=== PATIENT | male | born 1950 | race Caucasian/White ===

== ENCOUNTER 2017-01-09 18:07 | Emergency (ER) | payer OTHER ==
[2017-01-09] MEDS ORDERED: Oxymetazoline 0.05% Nasal Spray 15 ML Bottle NAS ONE (18:21)
[2017-01-09 18:41] VITALS: BP 134/77
[2017-01-09] MEDS ORDERED: Take Home: Acetaminophen/HYDROcodone 325-10 MG, 5 Tab Pack PO ONE (18:47)
[2017-01-09] MEDS ORDERED: Take Home: Acetaminophen/Codeine 300 MG/30 MG, 5 Tab Pack PO ONE (18:53)
[2017-01-09] MEDS ORDERED: Take Home: Amoxicillin/Clavulanate K 875-125 MG Tab, 2 Tab Pack PO ONE (18:54)
--- NOTE | 2017-01-09 19:03 | EDM.PDOC ---
ED HPI ENT - General Chief Complaint: ENT Problem Stated Complaint: nosebleed Time Seen by Provider: 01/09/17 18:30 Source of Information: Reports: Patient, Family History Limitations: Reports: No limitations - History of Present Illness INITIAL COMMENTS - FREE TEXT/NARRATIVE: History of pancreatic cancer. Currently undergoing chemotherapy. Platelet count currently 80. Developed nosebleed today at home. Presented to clinic. R nare was cauterized with silver nitrate. Shortly after cautery, developed recurrence of epistaxis. Symptom Onset Date: 01/09/17 Symptom Onset Time: 18:00 Timing/Duration: Reports: Minutes: Severity: moderate Location: Reports: right nares Quality: Reports: Ache Improves with: Reports: None Worsens with: Reports: None Associated Symptoms: Reports: no other symptoms - Related Data Allergies/ADRs: Allergies Allergy/AdvReac Type Severity Reaction Status Date / Time No Known Drug Allergies Allergy Other Verified 01/09/17 18:28 Home Meds: Home Meds Aspirin [Adult Low Dose Aspirin EC] 2 tab PO DAILY 02/04/14 [History] Levothyroxine [Synthroid] 50 mcg PO ACBRK 02/04/14 [History] Losartan [Cozaar] 25 mg PO DAILY 02/04/14 [History] Metoprolol Succinate [Toprol XL] 50 mg PO DAILY 02/04/14 [History] Multivitamin [Multivitamins] 1 each PO DAILY 02/04/14 [History] Nitroglycerin [Nitrostat] 0.4 mg SL ASDIRECTED PRN 02/04/14 [History] atorvaSTATin [Lipitor] 20 mg PO BEDTIME 02/04/14 [History] Omeprazole [Prilosec] 20 mg PO DAILY 07/06/15 [History] metFORMIN [Glucophage XR] 1 tab PO BID 07/06/15 [History] Past Medical History - Past Surgical History Other Musculoskeletal Surgeries/Procedures:: Right foot surgery Social & Family History - Tobacco Use Smoking Status *Q: Never Smoker Second Hand Smoke Exposure: No - Alcohol Use Days Per Week of Alcohol Use: 0 Number of Drinks Per Day: 1 Total Drinks Per Week: 0 - Recreational Drug Use Recreational Drug Use: No ED ROS ENT - Review of Systems Review Of Systems: ROS reveals no pertinent complaints other than HPI. Constitutional: Reports: no symptoms HEENT: Reports: Nosebleed Respiratory: Reports: No Symptoms Cardiovascular: Reports: No symptoms GI/Abdominal: Reports: No symptoms ED EXAM, ENT - Physical Exam Exam: Not Obtained Text/Narrative:: No obvious head or facial trauma noted. Epistaxis from R nare is controlled, but oozing. Visualization of nasal mucosa reveals no areas of active bleeding. Large blood clots are present with no active bleeding. ED ENT PROCEDURES - Epistaxis Procedure Indication: epistaxis, controlled Recent anticoagulants/antiplatlets: No Uncontrolled HTN: No Recent septal/nasal surgery: No Site of bleeding: right nare Clearing of clots: patient blew nose Topical Meds: phenylephrine Anterior Packing: inflatable nasal tampon Posterior packing: long inflatable nasal tampon Course - Vital Signs Last Recorded V/S: Last Vital Signs Temp 36.5 C 01/09/17 18:38 Pulse 77 01/09/17 18:38 Resp 16 01/09/17 18:38 BP 134/77 01/09/17 18:38 Pulse Ox 95 01/09/17 18:38 - Orders/Labs/Meds Meds: Medications Discontinued Medications Generic Name Dose Route Start Last Admin Trade Name Basilia PRN Reason Stop Dose Admin Acetaminophen/Codeine Phosphate 1 packet 01/09/17 18:53 Take Home: Acetam/Codeine 300-30 Mg, 5 Pack PO 01/09/17 18:54 ONETIME ONE Acetaminophen/Hydrocodone Bitart 1 packet 01/09/17 18:47 Take Home: Acetaminophen/Hydrocodone 325-10mg PO 01/09/17 18:48 ONETIME ONE Amoxicillin/Clavulanate Potassium 1 packet 01/09/17 18:54 Take Home: Amox/Clavulanate 875-12, 2 Tab Pac PO 01/09/17 18:55 ONETIME ONE Oxymetazoline HCl 1 ml 01/09/17 18:21 01/09/17 18:27 Afrin Original 0.05% Nasal [place] SANDRA 01/09/17 18:22 2 spray ONETIME ONE Administration Departure - Departure Time of Disposition: 19:20 Disposition: Home, Self-Care 01 Condition: good Clinical Impression: Anterior epistaxis Forms: ED Department Discharge
== END 2017-01-09 19:20 | disposition home or self-care (01) ==
LOC: VM.ED 18:07
DX: R04.0 Epistaxis (principal); Z79.82 Long term (current) use of aspirin; Z79.899 Other long term (current) drug therapy; Z98.890 Other specified postprocedural states
CPT/HCPCS: 30901; 99283; A9270; 30903

== ENCOUNTER 2017-07-08 17:39 | Emergency (ER) | payer OTHER, MEDICARE ==
[2017-07-08 18:09] VITALS: BP 142/73
[2017-07-08 18:55] LABS: CHLORIDE,CL 96 mmol/L (98-107)
[2017-07-08 18:59] LABS: SODIUM,NA 128 mmol/L (136-145)
--- NOTE | 2017-07-09 08:44 | ER ---
Date of Service: 07/08/2017 SUBJECTIVE: Yara presents to the emergency room with complaints of elevated blood sugar. The patient currently has stage III pancreatic cancer and is receiving care at the [facility] in [place]. The patient does have a history of type 2 diabetes mellitus which has been worsening due to the fact that he has been on insulin with his chemotherapy regimen and due to the fact that the cancer is affecting his pancreas. The patient states that he checked his blood sugar at home today and was found to be approximately 427. The patient was told to come to the emergency room for evaluation and treatment and to determine if he was experiencing ketoacidosis. The patient states that he is not experiencing any fever, lightheadedness, weakness, nausea, or vomiting. PAST MEDICAL HISTORY: 1. Pancreatic cancer. 2. Type 2 diabetes mellitus. 3. Hypertension. 4. Coronary artery disease. MEDICATIONS: 1. Levemir. 2. Toprol-XL. 3. Cozaar. 4. Synthroid. 5. Aspirin. 6. Lipitor. 7. Glucophage XR. 8. Multivitamin. 9. Omeprazole. ALLERGIES: NKDA. REVIEW OF SYSTEMS: General: No fever or chills. HEENT: No sore throat, rhinorrhea, or congestion. Respiratory: No shortness breath. Cardiac: Denies any substernal chest pain. No jaw, arm, neck, or back pain. GI: No nausea, vomiting, or diarrhea. No melena, hematochezia, or hematemesis. Please see history of present illness. : Denies any dysuria. States that his urine is not concentrated. Neurologic: No fainting, blackouts, or lightheadedness. PHYSICAL EXAMINATION: General: This is a 67-year-old male who is in no acute distress. Vital Signs: Blood pressure is 142/73, heart rate 71, temperature is 37.3, respiratory rate 16, O2 saturation is . Skin: Warm, pink, and dry. HEENT: Head is normocephalic, atraumatic. Mouth: Oral mucosa is moist. Lungs: Clear to auscultation. Heart: Regular rate and rhythm. Normal S1, S2. No S3, S4, murmurs, clicks, or rubs. Abdomen: Soft, nontender. There is no hepatosplenomegaly or masses noted. Extremities: Without edema. Neurologic: The patient is alert and oriented, answers all questions appropriately. His speech is fluent. His gait is within normal limits. LABORATORY DATA: A bedside glucose was done in the emergency room and was found to be 364. WBC is 2.9, hemoglobin is 12.5, platelets are 109. PT is 10.1, INR is 0.9. Blood gas: pH is 7.426, pCO2 is 35, pO2 is 79, HCO3 is 23, O2 saturation is 96%. Chemistries: Sodium is 128, potassium is 4.4, chloride is 96, bicarb is 24, BUN is 36, creatinine is 1.2, creatinine clearance is 62.52. GFR is greater than 60. Glucose is 399. Calcium is 8.7, corrected calcium is 9.02. Total bilirubin is 0.6, AST is 21, ALT is 52, alkaline phosphatase is 88, total protein is 7.0, albumin is 3.6. Urinalysis reveals a specific gravity of 1.010, pH of 5.5, negative for protein, did have 500 glucose, negative for ketones, did have trace of occult blood, negative nitrites and leukocyte esterase. He also was negative for again bilirubin and ketones. ASSESSMENT: Hyperglycemia with pseudohyponatremia. PLAN: The patient will be discharged. I did discuss the findings with the patient and his family. We will have him follow up in the clinic as directed. He has been advised to increase his Levemir to 17 units this evening by his primary care provider he identifies as Dr. Effie Siddiqi. He states that he will do this when he gets home. He is to return to the emergency room if he develops any lightheadedness, weakness, chest pain, shortness of breath, nausea, vomiting, or other worrisome signs or symptoms. All questions were answered. MWK: 07/08/2017 19:25:55 MODL: 07/08/2017 23:57:58 /[id number]
== END 2017-07-08 19:23 | disposition home or self-care (01) ==
LOC: VM.ED 17:39
DX: E11.65 Type 2 diabetes mellitus with hyperglycemia (principal); E87.1 Hypo-osmolality and hyponatremia; I10 Essential (primary) hypertension; I25.10 Atherosclerotic heart disease of native coronary artery without angina pectoris; C25.9 Malignant neoplasm of pancreas, unspecified; Z79.82 Long term (current) use of aspirin; Z79.899 Other long term (current) drug therapy; Z79.4 Long term (current) use of insulin
CPT/HCPCS: 36415; 36600; 80053; 81001; 82803; 82962; 85025; 85610; 99283

== ENCOUNTER 2018-05-10 20:51 | Emergency (ER) | payer OTHER, MEDICARE ==
[2018-05-10 21:10] VITALS: BP 131/59
--- NOTE | 2018-05-10 22:57 | EDM.PDOC ---
ED HPI GENERAL MEDICAL PROBLEM - General Chief Complaint: Eye Problems Stated Complaint: eye problem Time Seen by Provider: 05/10/18 21:12 Source of Information: Reports: Patient - History of Present Illness INITIAL COMMENTS - FREE TEXT/NARRATIVE: Pt. presents to ER with complaints of R eye conjuctival bleeding. Pt. states that his vision is preserved. He denies any acute vision loss or change. He denies any trauma to the area. His noticed the bleeding while eating dinner tonight. Pt. states that he is not experiencing any floaters or shadowing of his vision. He states that he recently underwent cataract surgery. Onset Date: 05/10/18 Onset Time: 18:30 Location: Reports: Face (R eye) - Related Data Allergies Allergy/AdvReac Type Severity Reaction Status Date / Time No Known Drug Allergies Allergy Other Verified 05/10/18 21:11 Home Meds: Home Meds Aspirin [Adult Low Dose Aspirin EC] 2 tab PO DAILY 02/04/14 [History] Levothyroxine [Synthroid] 50 mcg PO ACBRK 02/04/14 [History] Losartan [Cozaar] 25 mg PO DAILY 02/04/14 [History] Metoprolol Succinate [Toprol XL] 50 mg PO DAILY 02/04/14 [History] Multivitamin [Multivitamins] 1 each PO DAILY 02/04/14 [History] Nitroglycerin [Nitrostat] 0.4 mg SL ASDIRECTED PRN 02/04/14 [History] atorvaSTATin [Lipitor] 20 mg PO BEDTIME 02/04/14 [History] Omeprazole [Prilosec] 20 mg PO DAILY 07/06/15 [History] metFORMIN [Glucophage XR] 1 tab PO BID 07/06/15 [History] Past Medical History Cardiovascular History: Reports: High Cholesterol, Hypertension Gastrointestinal History: Reports: GERD Endocrine/Metabolic History: Reports: Diabetes, Type II Oncologic (Cancer) History: Reports: Pancreatic Other Oncologic History: chemotherapy, last dose SaturdayDecember 31. - Past Surgical History HEENT Surgical History: Reports: Tonsillectomy Other Musculoskeletal Surgeries/Procedures:: Right foot surgery Social & Family History - Tobacco Use Smoking Status *Q: Never Smoker - Recreational Drug Use Recreational Drug Use: No ED ROS GENERAL - Review of Systems Review Of Systems: See Below Constitutional: Reports: No Symptoms HEENT: Reports: Other (subconjunctival hemorrhage to lower medial quadrant of the R eye. No hyphema noted. TOÑ[place]. EOMI. Normal red reflex noted.). Denies: Eye Discharge, Eye Pain, Vision Change ED EXAM GENERAL W FULL EYE - Physical Exam Exam: See Below Exam Limited By: No Limitations Eye Exam: Bilateral Eye: Bleeding, EOMI, Normal Fundi, PERRL Visual Acuity (R) 20/: 200 Visual Acuity (L) 20/: 200 Conjunctiva & Sclera: Right: Subconjuctival Hemorrhage Cornea Exam: Bilateral: Normal Appearance Extraocular Movements: Bilateral: Intact Course - Vital Signs Last Recorded V/S: Last Vital Signs Temp 37.3 C 05/10/18 21:05 Pulse 61 05/10/18 21:05 Resp 16 05/10/18 21:05 BP 131/59 L 05/10/18 21:05 Pulse Ox 93 L 05/10/18 21:05 - Orders/Labs/Meds Labs: Laboratory Tests 05/10/18 Range/Units 22:21 WBC 15.3 H (4.0-10.0) x10^3/uL RBC 2.87 L (4.5-6.0) x10^6/uL Hgb 10.4 L D (14.0-18.0) g/dL Hct 31.5 L (40.0-52.0) % MCV 109.8 H D (78.0-93.0) fL MCH 36.2 H (26.0-32.0) pg MCHC 33.0 (32.0-36.0) g/dL RDW Coeff of Santi 14.5 (10.0-15.0) % Plt Count 74 L (130-400) x10^3/uL Add Manual Diff Yes Neutrophils % (Manual) 91 H (50-80) % Band Neutrophils % 2 (0-6) % Lymphocytes % (Manual) 2 L (25-50) % Monocytes % (Manual) 5 (2-11) % Platelet Estimate Decreased L Polychromasia 1+ slight H Poikilocytosis 1+ slight H Tear Drop Cells 1+ slight H Departure - Departure Time of Disposition: 23:00 Disposition: Home, Self-Care 01 Clinical Impression: Subconjunctival bleed - Discharge Information Instructions: Subconjunctival Hemorrhage Referrals: Effie Siddiqi MD [Primary Care Provider] - Forms: ED Department Discharge Additional Instructions: Follow-up with oncology on Saturday. Return to ER if you have any vision loss or change.
== END 2018-05-10 22:56 | disposition home or self-care (01) ==
LOC: VM.ED 20:51
DX: H11.33 Conjunctival hemorrhage, bilateral (principal); E11.9 Type 2 diabetes mellitus without complications; I10 Essential (primary) hypertension; Z79.82 Long term (current) use of aspirin; Z79.899 Other long term (current) drug therapy
CPT/HCPCS: 36415; 85025; 99284

== ENCOUNTER 2018-11-13 01:16 | Emergency (ER) | payer MEDICARE, OTHER ==
[2018-11-13 01:24] VITALS: BP 128/70
[2018-11-13] MEDS: Sodium Chloride 0.9% 1,000 ML IV ONE (02:05)
[2018-11-13] MEDS: Ondansetron 4 MG/2 ML SDV IVPUSH ONE (02:21)
[2018-11-13] MEDS: HYDROmorphone 1 MG/ML Syringe IVPUSH ONE (02:22)
[2018-11-13 02:23] LABS: CHLORIDE,CL 97 mmol/L (98-107); SODIUM,NA 136 mmol/L (136-145)
[2018-11-13 02:26] LABS: ANION GAP 15.2 mmol/L (10-20)
[2018-11-13] MEDS: Iopamidol 612 MG/ML 100 ML Bottle IVPUSH ONE (03:05)
[2018-11-13] MEDS ORDERED: HYDROmorphone 2 MG Tab ONE (03:57)
--- NOTE | 2018-11-13 04:06 | EDM.PDOC ---
ED HPI GENERAL MEDICAL PROBLEM - General Chief Complaint: Abdominal Pain Stated Complaint: abdominal pain Time Seen by Provider: 11/13/18 01:33 Source of Information: Reports: Patient History Limitations: Reports: No Limitations - History of Present Illness INITIAL COMMENTS - FREE TEXT/NARRATIVE: Pt. presents to ER with complaints of increased abdominal pain. Pt. is currently in the palliative stages of end-stage pancreatic cancer. He has stopped all treatments at this point. Pt. states that he woke up with increased abdominal discomfort at approx. midnight. He is currently on oxycodone 10mg every 4 hours as needed for pain. He had taken a dose at 11PM. His appetite has been poor. He is nauseated but is not vomiting. Denies any blood in his stools. He was passing gas yesterday. He denies any chest pain or shortness of breath. They have been offered a hospice referral, but they feel that they are not at the point of making that decision yet. He is currently residing in his residence with his . He has been able to ambulate and perform his ADLs at home without assistance. Pt. states that by the time he arrived to the ED, his pain had improved from a 7 to approx. a 2. Onset: Today Onset Date: 11/13/18 Duration: Getting Worse Location: Reports: Abdomen Severity: Severe Associated Symptoms: Denies: Confusion, Chest Pain, Cough Lower Abdomen Pain Score (Numeric/FACES): 6 - Related Data Allergies Allergy/AdvReac Type Severity Reaction Status Date / Time No Known Drug Allergies Allergy Other Verified 11/13/18 01:18 Home Meds: Home Meds Aspirin [Adult Low Dose Aspirin EC] 1 tab PO BID 02/04/14 [History] Levothyroxine [Synthroid] 50 mcg PO ACBRK 02/04/14 [History] Losartan [Cozaar] 25 mg PO DAILY 02/04/14 [History] Metoprolol Succinate [Toprol XL] 50 mg PO DAILY 02/04/14 [History] Multivitamin [Multivitamins] 1 each PO DAILY 02/04/14 [History] atorvaSTATin [Lipitor] 20 mg PO BEDTIME 02/04/14 [History] Omeprazole [Prilosec] 20 mg PO DAILY 07/06/15 [History] metFORMIN [Glucophage XR] 1 tab PO BID 07/06/15 [History] Cyanocobalamin (Vitamin B12) [Vitamin B12] 1,000 mcg PO DAILY 11/13/18 [History] HYDROmorphone [Dilaudid] 2 mg PO Q4H PRN #6 tab 11/13/18 [Rx] HYDROmorphone [Dilaudid] 4 mg PO Q4H #5 tablet 11/13/18 [Rx] LORazepam 1.5 mg PO BEDTIME 11/13/18 [History] Sertraline [Zoloft] 50 mg PO BEDTIME 11/13/18 [History] Turmeric 2 tab PO DAILY 11/13/18 [History] oxyCODONE HCl [Oxycodone HCl] 10 mg PO Q4H PRN 11/13/18 [History] Past Medical History Cardiovascular History: Reports: High Cholesterol, Hypertension Gastrointestinal History: Reports: GERD Endocrine/Metabolic History: Reports: Diabetes, Type II Oncologic (Cancer) History: Reports: Pancreatic Other Oncologic History: chemotherapy, last dose SaturdayDecember 31. - Past Surgical History HEENT Surgical History: Reports: Tonsillectomy Other Musculoskeletal Surgeries/Procedures:: Right foot surgery Social & Family History - Tobacco Use Smoking Status *Q: Never Smoker ED ROS GENERAL - Review of Systems Review Of Systems: See Below Constitutional: Reports: No Symptoms HEENT: Reports: No Symptoms Respiratory: Reports: No Symptoms Cardiovascular: Reports: No Symptoms Endocrine: Reports: No Symptoms GI/Abdominal: Reports: Abdominal Pain, Anorexia, Decreased Appetite, Flatus, Nausea. Denies: Black Stool, Bloody Stool, Constipation, Diarrhea, Difficulty Swallowing, Hematemesis, Hematochezia, Melena, Vomiting : Reports: No Symptoms Musculoskeletal: Reports: No Symptoms Skin: Reports: No Symptoms Neurological: Reports: No Symptoms Psychiatric: Reports: No Symptoms ED EXAM, GENERAL - Physical Exam Exam: See Below Exam Limited By: No Limitations General Appearance: Alert, WD/WN, Mild Distress Neck: Normal Inspection, Supple, Non-Tender, Full Range of Motion Respiratory/Chest: No Respiratory Distress, Lungs Clear, Normal Breath Sounds, No Accessory Muscle Use, Chest Non-Tender Cardiovascular: Normal Peripheral Pulses, Regular Rate, Rhythm, No Edema, No Gallop, No JVD, No Murmur, No Rub Peripheral Pulses: 3+: Radial (R) GI/Abdominal: Normal Bowel Sounds (bowel sounds present but diminished), Soft, Tender (diffusely tender), Hepatomegaly. No: Guarding, Rigid, Rebound (Male) Exam: Deferred Rectal (Males) Exam: Deferred Neurological: Alert, Oriented, CN II-XII Intact, Normal Cognition, Normal Gait, Normal Reflexes, No Motor/Sensory Deficits Psychiatric: Normal Affect, Normal Mood Skin Exam: Warm, Dry, Intact, Pallor Course - Vital Signs Last Recorded V/S: Last Vital Signs Temp 36.1 C 11/13/18 01:19 Pulse 73 11/13/18 01:19 Resp 18 11/13/18 01:19 BP 128/70 11/13/18 01:19 Pulse Ox 18 L 11/13/18 01:19 - Orders/Labs/Meds Orders: Active Orders 24 hr Category Date Time Status Implanted Port Access [RC] DAILY Care 11/13/18 01:41 Active Abdomen 1V Upright [CR] Stat Exams 11/13/18 02:02 Ordered Abdomen Pelvis w Cont [CT] Stat Exams 11/13/18 02:14 Ordered UA W/MICROSCOPIC [URIN] Stat Lab 11/13/18 01:40 Ordered Labs: Laboratory Tests 11/13/18 11/13/18 11/13/18 Range/Units 01:50 01:50 01:50 WBC 4.8 (4.0-10.0) x10^3/uL RBC 3.30 L (4.5-6.0) x10^6/uL Hgb 11.6 L (14.0-18.0) g/dL Hct 34.0 L (40.0-52.0) % MCV 103.0 H D (78.0-93.0) fL MCH 35.2 H (26.0-32.0) pg MCHC 34.1 (32.0-36.0) g/dL RDW Coeff of Santi 11.2 (10.0-15.0) % Plt Count 70 L (130-400) x10^3/uL Neut % (Auto) 79.0 (50.0-80.0) % Lymph % (Auto) 9.2 L (25.0-50.0) % Rowan % (Auto) 10.1 (2.0-11.0) % Eos % (Auto) 1.5 (0.0-4.0) % Baso % (Auto) 0.2 (0.2-1.2) % PT (9.6-11.4) SEC INR (2.0-3.5) Sodium 136 (136-145) mmol/L Potassium 4.2 (3.5-5.1) mmol/L Chloride 97 L (98-107) mmol/L Carbon Dioxide 28 (21-32) mmol/L Anion Gap 15.2 (10-20) mmol/L BUN 15 (7-18) mg/dL Creatinine 0.9 (0.70-1.30) mg/dL Est Cr Clr Drug Dosing TNP Estimated GFR (MDRD) > 60 Glucose 145 H (74-106) mg/dL Lactic Acid 1.9 (0.4-2.0) mmol/L Calcium 9.5 (8.5-10.1) mg/dL Corrected Calcium 10.06 (8.5-10.1) mg/dL Phosphorus 3.9 (2.6-4.7) mg/dL Magnesium 1.4 L (1.8-2.4) mg/dL Total Bilirubin 0.5 (0.2-1.0) mg/dL AST 46 H (15-37) U/L ALT 103 H (16-63) U/L Alkaline Phosphatase 279 H (46-116) U/L C-Reactive Protein 2.9 H (<=0.9) mg/dL Total Protein 7.6 (6.4-8.2) g/dL Albumin 3.3 L (3.4-5.0) g/dL Globulin 4.3 Albumin/Globulin Ratio 0.77 11/13/18 Range/Units 02:03 WBC (4.0-10.0) x10^3/uL RBC (4.5-6.0) x10^6/uL Hgb (14.0-18.0) g/dL Hct (40.0-52.0) % MCV (78.0-93.0) fL MCH (26.0-32.0) pg MCHC (32.0-36.0) g/dL RDW Coeff of Santi (10.0-15.0) % Plt Count (130-400) x10^3/uL Neut % (Auto) (50.0-80.0) % Lymph % (Auto) (25.0-50.0) % Rowan % (Auto) (2.0-11.0) % Eos % (Auto) (0.0-4.0) % Baso % (Auto) (0.2-1.2) % PT 11.6 H (9.6-11.4) SEC INR 1.1 L (2.0-3.5) Sodium (136-145) mmol/L Potassium (3.5-5.1) mmol/L Chloride (98-107) mmol/L Carbon Dioxide (21-32) mmol/L Anion Gap (10-20) mmol/L BUN (7-18) mg/dL Creatinine (0.70-1.30) mg/dL Est Cr Clr Drug Dosing Estimated GFR (MDRD) Glucose (74-106) mg/dL Lactic Acid (0.4-2.0) mmol/L Calcium (8.5-10.1) mg/dL Corrected Calcium (8.5-10.1) mg/dL Phosphorus (2.6-4.7) mg/dL Magnesium (1.8-2.4) mg/dL Total Bilirubin (0.2-1.0) mg/dL AST (15-37) U/L ALT (16-63) U/L Alkaline Phosphatase (46-116) U/L C-Reactive Protein (<=0.9) mg/dL Total Protein (6.4-8.2) g/dL Albumin (3.4-5.0) g/dL Globulin Albumin/Globulin Ratio Meds: Medications Discontinued Medications Generic Name Dose Route Start Last Admin Trade Name Basilia PRN Reason Stop Dose Admin Hydromorphone HCl 0.5 mg 11/13/18 02:13 11/13/18 02:22 Dilaudid IVPUSH 11/13/18 02:14 0.5 mg ONETIME ONE Administration Hydromorphone HCl Confirm 11/13/18 03:57 Dilaudid Administered 11/13/18 03:58 Dose 12 mg .ROUTE .STK-MED ONE Sodium Chloride 1,000 mls @ 1,000 mls/hr 11/13/18 01:42 11/13/18 02:05 Normal Saline IV 11/13/18 02:41 1,000 mls/hr .BOLUS ONE Administration Iopamidol 100 ml 11/13/18 03:03 11/13/18 03:05 Isovue-300 (61%) IVPUSH 11/13/18 03:04 100 ml ONETIME ONE Administration Ondansetron HCl 4 mg 11/13/18 02:14 11/13/18 02:21 Zofran IVPUSH 11/13/18 02:15 4 mg ONETIME ONE Administration - Radiology Interpretation Free Text/Narrative:: Advanced malignancy involving the pancreas with local invasion. There is evidence of some new occlusive vascular disease and a small amount of free fluid in the pelvis. There is no evidence of free air or obstruction at this point. - Re-Assessments/Exams Free Text/Narrative Re-Assessment/Exam: Discussed findings with family. There definitely appears to be some differing opinions on how to proceed in terms of care. Patient very much would like to be home. He wants to go on a fishing trip tomorrow to [place]. He is acutely aware of his condition, as is his son. His and [id number] are quite anxious and would like Mr. Shah admitted for pain control. This option was given to the patient, but he has opted to be discharged, despite the urging of his and [id number] to be admitted. Will start the patient on dilaudid 4mg PO every 4 hours in addition to the oxycodone. I did speak frankly with the patient and family that he is indeed very ill, and they may find benefit from consulting hospice in the very near future. At minimum, I advised them to follow -up closely with Dr. Siddiqi. Departure - Departure Time of Disposition: 04:00 Disposition: Home, Self-Care 01 Clinical Impression: Pancreatic cancer metastasized to liver - Discharge Information Prescriptions: HYDROmorphone [Dilaudid] 2 mg PO Q4H PRN #6 tab PRN Reason: Pain (Severe 7-10) HYDROmorphone [Dilaudid] 4 mg PO Q4H #5 tablet Referrals: PCP,Unobtain [Primary Care Provider] - Forms: ED Department Discharge Additional Instructions: Continue with the oxycodone at the current dose. For severe pain, take dilaudid 4mg by mouth every 4 hours in addition to the oxycodone. Continue with your other medications. Follow-up with Dr. Siddiqi in the next 5-7 days for recheck. There is signficant infiltation of the vasculature and gut. Mesenteric ischemia and/or ruptured viscus/bowel obstruction are a real possibility in the near future. Pt. very much wants to go on his fishing trip today. I advised him that , as long as he is feeling up to it, he should go but anticipate the need for pain medication. He is advised to return to ER if the discomfort is refractory to oral pain medication. - My Orders Last 24 Hours: My Active Orders 11/13/18 01:40 UA W/MICROSCOPIC [URIN] Stat 11/13/18 01:41 Implanted Port Access [RC] DAILY 11/13/18 02:02 Abdomen 1V Upright [CR] Stat 11/13/18 02:14 Abdomen Pelvis w Cont [CT] Stat - Assessment/Plan Last 24 Hours: My Active Orders 11/13/18 01:40 UA W/MICROSCOPIC [URIN] Stat 11/13/18 01:41 Implanted Port Access [RC] DAILY 11/13/18 02:02 Abdomen 1V Upright [CR] Stat 11/13/18 02:14 Abdomen Pelvis w Cont [CT] Stat
--- NOTE | 2018-11-13 08:51 | CR ---
[id number] RAD/RAD Abdomen Flat Plate 1V EXAM: RAD Abdomen Flat Plate 1V INDICATION: ACUTE ABDOMINAL PAIN. HISTORY OF PANCREATIC CANCER. COMPARISON: None. DISCUSSION: Unobstructed bowel gas pattern. No radiographically evident pneumoperitoneum. Multiple clips within the upper abdomen. No definite intra-abdominal calcifications. Serpiginous hyperdensity overlying the left upper quadrant seen only on one image likely represents artifact. IMPRESSION: No acute findings in the abdomen. Vern Potts DO 11/13/18 0850 Thank you for allowing us to participate in the care of your patient.
--- NOTE | 2018-11-13 10:09 | CT ---
[id number] CT/CT Abdomen Pelvis W IV EXAM: CT Abdomen Pelvis W IV CLINICAL DATA: ABDOMINAL PAIN. PANCREATIC CANCER COMPARISON: CORRELATION IS MADE WITH THE EXAM OF APRIL 23, 2015. FINDINGS: Multiple liver lesions are seen consistent with metastatic disease. A 3 cm hypodense mass is seen in the head of the pancreas. There is extrahepatic biliary obstruction. There is moderate distention of the gallbladder. There is encasement of the portal vein. There is encasement of the common hepatic artery. There is obstruction of the pancreatic duct. There is gastric outlet obstruction secondary to encasement of the duodenum. There is edema of the mesentery. There is a small amount of free fluid in the pelvis. The appendix is normal. The pelvis shows no mass or adenopathy. There is uncomplicated mild diverticular disease of the colon. There are diffuse atheromatous calcifications. Small renal cysts are seen. There is no hydronephrosis. There is moderate splenomegaly. There is obstruction of the splenic vein at the confluence of the superior mesenteric vein and portal vein. There is no retroperitoneal adenopathy. Old fracture deformities of pubic rami are seen. Lytic changes are seen involving the bony pelvis. Report provided at time of exam. IMPRESSION: EXTENSIVE NONRESECTABLE PANCREATIC MALIGNANCY WITH METASTATIC LIVER DISEASE, EXTRAHEPATIC BILIARY OBSTRUCTION, AND ENCASEMENT OF THE VISCERAL VESSELS WITH PRESINUSOIDAL PORTAL VENOUS HYPERTENSION. SMALL AMOUNT OF ASCITES. POSSIBLE METASTATIC BONE DISEASE. Werner Pollard MD 11/13/18 1002 Thank you for allowing us to participate in the care of your patient.
== END 2018-11-13 04:01 | disposition home or self-care (01) ==
LOC: VM.ED 01:16
DX: C25.9 Malignant neoplasm of pancreas, unspecified (principal); C78.7 Secondary malignant neoplasm of liver and intrahepatic bile duct; E11.9 Type 2 diabetes mellitus without complications; K21.9 Gastro-esophageal reflux disease without esophagitis; I10 Essential (primary) hypertension; E78.00 Pure hypercholesterolemia, unspecified; Z79.82 Long term (current) use of aspirin; Z79.899 Other long term (current) drug therapy
CPT/HCPCS: 74018; 74177; 80053; 83605; 83735; 84100; 85025; 85610; 86140; 96361; 96374; 96375; 99284; J1170; J2405; J7030; Q9967; A9270-GY

== ENCOUNTER 2018-12-02 14:39 | Inpatient (IN) | payer SELFPAY ==
[2018-12-02] MEDS ORDERED: OLANZapine 10 MG Vial IM ONE (18:01)
--- NOTE | 2018-12-02 18:51 | PCM.HP ---
H&P History of Present Illness - General Date of Service: 12/02/18 Admit Problem/Dx: Admission Diagnosis/Problem Admission Diagnosis/Problem Pancreatic neoplasm Source of Information: Family History Limitations: Reports: Altered Mental Status (for patient; none for family) - History of Present Illness Initial Comments - Free Text/Narative: Mr. Shah is a 68 yo male with advanced pancreatic cancer who is admitted to [facility] for end of life cares. He is confused and is not able to answer questions appropriately. His family states that his condition has really been deteriorating over the past 3-4 days. He has been more confused, has been more restless, and has been increasingly weak. His skin and eyes have also become more and more yellow. He has not been complaining as much of pain but they are wondering if he would even be able to acknowledge pain at this time. He is no longer really eating or drinking anything. He recently told his family that he did not want to be at home when he and they were having a hard time caring for him at home; therefore, he is admitted for end of life cares. - Related Data Allergies/Adverse Reactions: Allergies Allergy/AdvReac Type Severity Reaction Status Date / Time No Known Drug Allergies Allergy Other Verified 11/13/18 01:18 Home Medications: Home Meds LORazepam 1 mg PO DAILY@0800 11/13/18 [History] HYDROmorphone [Dilaudid] 4 mg PO Q2HR PRN 12/02/18 [History] HYDROmorphone [Dilaudid] 6 mg PO Q4H 12/02/18 [History] LORazepam 1 mg PO Q4H PRN 12/02/18 [History] LORazepam 1.5 mg PO BEDTIME 12/02/18 [History] Past Medical History Cardiovascular History: Reports: High Cholesterol, Hypertension Gastrointestinal History: Reports: GERD Endocrine/Metabolic History: Reports: Diabetes, Type II Oncologic (Cancer) History: Reports: Pancreatic - Past Surgical History HEENT Surgical History: Reports: Tonsillectomy Other Musculoskeletal Surgeries/Procedures:: Right foot surgery Social & Family History - Family History Family Medical History: Noncontributory - Tobacco Use Smoking Status *Q: Never Smoker - Living Situation & Occupation Living situation: Reports: , with Significant Other Occupation: Retired H&P Review of Systems - Review of Systems: Review Of Systems: Unable To Obtain (due to patient confusion) Exam - Exam Exam: See Below - Exam General: Alert, Other (disoriented to person, place, and time; appears restless) HEENT: Mucosa Moist & [place], Scleral Icterus Neck: Supple, Trachea Midline. No: Lymphadenopathy, Thyromegaly Lungs: Clear to Auscultation, Normal Respiratory Effort Cardiovascular: Regular Rate, Regular Rhythm, Normal S1, Normal S2 GI/Abdominal Exam: Normal Bowel Sounds, Soft, Non-Tender, No Distention Extremities: Non-Tender, No Pedal Edema, Normal Capillary Refill Peripheral Pulses: 2+: Radial (L), Radial (R) Skin: Warm, Dry, Intact - Problem List (1) Need for comfort care SNOMED Code(s): 768677963, 711377819 ICD Code: [id number] - Status: Acute Current Visit: Yes (2) Palliative care patient SNOMED Code(s): 252468893 ICD Code: Z51.5 - ENCOUNTER FOR PALLIATIVE CARE Status: Acute Current Visit: Yes (3) Pancreatic cancer SNOMED Code(s): 034156098 ICD Code: C25.9 - MALIGNANT NEOPLASM OF PANCREAS, UNSPECIFIED Status: Chronic Current Visit: Yes Qualifiers: Pancreatic malignancy location: unspecified Qualified Code(s): C25.9 - Malignant neoplasm of pancreas, unspecified Problem List Initiated/Reviewed/Updated: Yes Orders Last 24hrs: Active Orders 24 hr Category Date Time Status Admission Status [Patient Status] [ADT] Routine ADT 12/02/18 15:50 Active Resuscitation Status Routine Resus Stat 12/02/18 18:45 Ordered Assessment/Plan Comment:: 68 yo male with end stage pancreatic cancer admitted for end of life cares. Patient is enrolled in [facility] and will continue to be followed by them during his hospitalization. His medications are being adjusted to allow for control of his agitation and symptom management. Continue medications per hospice. Code status is DNR/DNI/comfort cares. No indication for any VTE prophylaxis. Patient will remain admitted until he passes away. Family at bedside and relieved that they no longer have to be only caregivers for the patient.
[2018-12-02] MEDS ORDERED: OLANZapine 10 MG Vial IM PRN (19:02)
[2018-12-02] MEDS ORDERED: HYOSCYAMINE 0.125 MG PO PRN (19:15)
[2018-12-02] MEDS ORDERED: LORazepam 1 MG Tab**OWN MED PO SCH (20:00)
[2018-12-02] MEDS ORDERED: OLANZapine 5 MG Tab PO SCH (20:00)
[2018-12-02] MEDS: MORPHINE 20 MG/ML PO SCH ×2 (21:19→23:20)
[2018-12-02] MEDS: LORazepam 1 MG Tab**OWN MED PO PRN (23:32)
[2018-12-03] MEDS: MORPHINE 20 MG/ML PO PRN ×2 (00:07→05:33)
[2018-12-03] MEDS: MORPHINE 20 MG/ML PO SCH (03:44)
[2018-12-03] MEDS: LORazepam 1 MG Tab**OWN MED PO PRN (05:33)
[2018-12-03] MEDS ORDERED: OLANZapine 10 MG Vial IM PRN (05:48)
[2018-12-03] MEDS ORDERED: Sodium Chloride 0.9% 10 ML Syringe FLUSH PRN (07:58)
[2018-12-03] MEDS ORDERED: HYDROmorphone 1 MG/ML Syringe IVPUSH SCH (08:00)
[2018-12-03] MEDS ORDERED: LORazepam 2 MG/ML SDV IVPUSH PRN (08:01)
[2018-12-03] MEDS ORDERED: HYDROmorphone 1 MG/ML Syringe IVPUSH PRN (08:01)
--- NOTE | 2018-12-03 08:10 | PCM.DCSUM1 ---
Discharge Summary - Hospital Course Brief History: Mr. Shah is a 68 yo male with advanced pancreatic cancer admitted for end of life cares. - Discharge Data Discharge Date: 12/03/18 Discharge Disposition: Admitted As Inpatient 67 Condition: Good - Discharge Diagnosis/Problem(s) (1) Need for comfort care SNOMED Code(s): 541806078, [id number] ICD Code: [id number] - Status: Acute Current Visit: Yes (2) Palliative care patient SNOMED Code(s): 118600551 ICD Code: Z51.5 - ENCOUNTER FOR PALLIATIVE CARE Status: Acute Current Visit: Yes (3) Pancreatic cancer SNOMED Code(s): 229541765 ICD Code: C25.9 - MALIGNANT NEOPLASM OF PANCREAS, UNSPECIFIED Status: Chronic Current Visit: Yes Qualifiers: Pancreatic malignancy location: unspecified Qualified Code(s): C25.9 - Malignant neoplasm of pancreas, unspecified - Patient Summary/Data Hospital Course: Patient's symptoms were difficult to control with PO medications. He remained significantly agitated overnight. Therefore, he will transition to [facility] instead today. - Discharge Plan Home Medications: Home Meds Hyoscyamine [Hyosyne] 0.125 mg PO Q4H PRN 12/02/18 [History] LORazepam 1.5 mg PO BEDTIME 12/02/18 [History] LORazepam 2 mg PO Q2H PRN 12/02/18 [History] Morphine [Morphine 20 MG/ML Soln] 10 mg PO Q4H 12/02/18 [History] Morphine [Morphine 20 MG/ML Soln] 20 mg PO Q4H PRN 12/02/18 [History] OLANZapine [Olanzapine] 5 mg PO TID 12/02/18 [History] OLANZapine [Olanzapine] 10 mg IM Q8H PRN 12/02/18 [History] - Discharge Summary/Plan Comment DC Time >30 min.: No - Patient Data Med Orders - Current: Current Medications Hydromorphone HCl (Dilaudid) 1 mg IVPUSH Q4H SE Hydromorphone HCl (Dilaudid) 2 mg IVPUSH Q2H PRN PRN Reason: Pain Lorazepam (Ativan) 2 mg PO Q2H PRN PRN Reason: Anxiety Last Admin: 12/03/18 05:33 Dose: 2 mg Lorazepam (Ativan) 2 mg IVPUSH Q4H PRN PRN Reason: Anxiety Lorazepam (Ativan) 1.5 mg PO TID SE Morphine Sulfate (Morphine 20 Mg/Ml Soln) 20 mg PO Q4H PRN PRN Reason: Pain Last Admin: 12/03/18 05:33 Dose: 20 mg Olanzapine (Zyprexa) 10 mg IM Q4HR PRN PRN Reason: Anxiety Last Admin: 12/03/18 06:08 Dose: 10 mg Patient's Own Medication Hyoscyamine 0.125 Mg Tab 1 each PO Q4H PRN PRN Reason: SECRETIONS Sodium Chloride (Saline Flush) 10 ml FLUSH ASDIRECTED PRN PRN Reason: Keep Vein Open Discontinued Medications Lorazepam (Ativan) 1.5 mg PO BEDTIME SE Last Admin: 12/02/18 21:20 Dose: Not Given Morphine Sulfate (Morphine 20 Mg/Ml Soln) 10 mg PO Q4H SE Last Admin: 12/03/18 03:44 Dose: Not Given Olanzapine (Zyprexa) 5 mg IM ONETIME ONE Stop: 12/02/18 18:02 Last Admin: 12/02/18 18:17 Dose: 5 mg Olanzapine (Zyprexa) 5 mg PO TID SE Last Admin: 12/02/18 21:20 Dose: Not Given Olanzapine (Zyprexa) 10 mg IM Q8H PRN PRN Reason: Anxiety Last Admin: 12/03/18 00:43 Dose: 10 mg
[2018-12-03] MEDS ORDERED: [UNRECOGNIZED DRUG - REMARK] SCH (10:15)
[2018-12-03] MEDS ORDERED: LORazepam 1 MG Tab PO SCH (12:00)
== END 2018-12-03 13:30 | disposition critical access hospital (66) | DRG 951 ==
LOC: VM.MS 15:37 → UNDOADMIN 15:37 → UNDODISIN 12-03 13:30
PROVIDERS: ADMIT Internal Medicine; ATTEND Family Medicine
DX: Z51.5 Encounter for palliative care (principal); C25.9 Malignant neoplasm of pancreas, unspecified; I10 Essential (primary) hypertension; K21.9 Gastro-esophageal reflux disease without esophagitis; E11.9 Type 2 diabetes mellitus without complications; E78.00 Pure hypercholesterolemia, unspecified; Z66 Do not resuscitate; Z98.890 Other specified postprocedural states
CPT/HCPCS: A9270-GY; J1170; J2060; J3490

== ENCOUNTER 2018-12-03 11:11 | Inpatient (IN) | payer OTHER ==
[2018-12-03] MEDS ORDERED: diphenhydrAMINE 25 MG Cap PO PRN (11:53)
[2018-12-03] MEDS ORDERED: Atropine 1% Ophth Soln 5 ML BOTTLE SL PRN (11:53)
[2018-12-03] MEDS ORDERED: Ondansetron 4 MG/2 ML SDV IVPUSH PRN (11:53)
[2018-12-03] MEDS ORDERED: Metoclopramide 10 MG/2 ML SDV IVPUSH PRN (11:53)
[2018-12-03] MEDS ORDERED: Acetaminophen 325 MG Tab PO PRN (11:53)
[2018-12-03] MEDS ORDERED: OLANZapine 10 MG Vial IM PRN (11:53)
[2018-12-03] MEDS ORDERED: Menthol/Zinc Oxide Ointment 3.5 GM Tube TOP PRN (11:53)
[2018-12-03] MEDS ORDERED: Lidocaine 2% Viscous Solution 15 ML Cup PO PRN (11:53)
[2018-12-03] MEDS ORDERED: Lactulose Soln 10 GM/15 ML 15 ML UD Cup PO PRN (11:53)
[2018-12-03] MEDS: LORazepam 1 MG Tab PO SCH ×2 (15:11→21:16)
[2018-12-03] MEDS: HYDROmorphone 1 MG/ML Syringe IVPUSH SCH ×2 (15:21→22:08)
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
[2018-12-03] MEDS: LORazepam 2 MG/ML SDV IVPUSH PRN ×2 (16:59→22:10)
[2018-12-03] MEDS: HYDROmorphone 1 MG/ML Syringe IVPUSH PRN ×2 (17:03→22:06)
[2018-12-04] MEDS: HYDROmorphone 1 MG/ML Syringe IVPUSH SCH ×7 (00:50→16:00)
[2018-12-04] MEDS: LORazepam 2 MG/ML SDV IVPUSH PRN (03:56)
[2018-12-04] MEDS: HYDROmorphone 1 MG/ML Syringe IVPUSH PRN (06:33)
[2018-12-04] MEDS ORDERED: LORazepam 2 MG/ML SDV IVPUSH PRN (08:51)
[2018-12-04] MEDS: LORazepam 1 MG Tab PO SCH ×2 (09:05→11:53)
[2018-12-04] MEDS: hydrOXYzine HCl 50 MG/ML SDV IM SCH ×2 (11:50→16:00)
[2018-12-04] MEDS ORDERED: HYDROmorphone 1 MG/ML Syringe IVPUSH PRN (12:07)
--- NOTE | 2018-12-04 13:00 | PN ---
Progress Note for CHANTE CALIXTO Date: 12/04/2018 Room #: VM.222 SUBJECTIVE: This is general inpatient hospital day #2 on a 68-year-old admitted from hospice service initially for respite but was having some terminal delirium, getting very agitated, trying to get up out of bed. He has metastatic pancreatic cancer and was having some back pain. He has been on scheduled Dilaudid IV and p.r.n. seems to be helping. He is on scheduled Ativan. He is also still requiring some IM doses of Zyprexa last given at 5 a.m. He is not taking anything p.o. currently. He received a total of 6 mg of IV Dilaudid yesterday in addition to the 6 mg of scheduled dosing. He also received 1 mg of IV Ativan p.r.n. push 3 times. He is now currently resting comfortably, but when I did examine him, he did start to stir a little bit. We were able to get him to relax again. Family has been at the bedside. They have been helping to calm him down as well. He otherwise has not been throwing up. He does have a catheter that was placed. OBJECTIVE: General: He is resting peacefully in no acute distress. He appears to be quite thinner than in the past, but not cachectic. His skin is mildly yellow. His sclerae are icteric when he did open. Heart: Regular rate with some mild tachycardia. Lungs: Sounds decreased but poor respiratory effort. Abdomen: Soft. Hypoactive bowel sounds. Did not appear to be tender. Extremities: Warm and dry. There was no edema. He had no mottling. ASSESSMENT AND PLAN: 1. Metastatic pancreatic cancer to the liver with terminal delirium. Comfort is the goal. The patient is still having episodes of increased agitation, especially in the evening. I am going to stop the oral Ativan scheduled and place it IV to allow better administration. I will increase his IV Dilaudid, especially due to the new concern of back pain to 2 mg q.4 hours. He also may have q.1 hour p.r.n. dosing if needed. We will schedule him on some subcu hydroxyzine just to help with augmentation of some of the pain and try to have oral Zyprexa at night since it does seem to work well when given in the IM form, but if he is unable to take p.o., the IM is available. 2. Increasing delirium, presumably due to his malignancy, probably some dehydration, possibly even underlying infections. We are not treating these things. We are only focusing on the symptoms and comfort is desired. Also, the medications can contribute. Family understands this, and we have adjusted medications appropriately. 3. Underlying medical comorbidities, which are not being addressed due to end of life cares. PLAN: At this point, we will continue IV pain control through his port with 2 mg of Dilaudid q.4 hours scheduled, 2 mg q.1 hour p.r.n., Ativan will be now 2 mg 3 times a day and continue with 2 mg q.4 hours p.r.n. for anxiety. Zyprexa will also be available IM q.4 hours as needed for the severe agitation. Family seems comfortable with this plan. We also discussed for overall cares he will be transitioned from [facility] to inpatient care because he is requiring frequent pain medications and adjustments. He more than meets acute criteria and then we may be looking at a swing bed stay for end of life cares. His primary care Dr. Siddiqi will resume care tomorrow. MKA: 12/04/2018 12:09:01 MODL: 12/04/2018 12:52:36 /[id number]
--- NOTE | 2018-12-04 17:18 | PCM.DCSUM1 ---
Discharge Summary - Hospital Course Free Text/Narrative:: Patient transitioning from [facility] care to inpatient care. His family has decided to revoke hospice because he is now hospitalized. Please see detailed progress note for plan of care. - Discharge Data Discharge Date: 12/04/18 Discharge Disposition: Admitted As Inpatient 67 Condition: Poor - Discharge Plan Home Medications: Home Meds Hyoscyamine [Hyosyne] 0.125 mg PO Q4H PRN 12/02/18 [History] LORazepam 1.5 mg PO TID 12/02/18 [History] Morphine [Morphine 20 MG/ML Soln] 20 mg PO Q4H PRN 12/02/18 [History] OLANZapine [Olanzapine] 10 mg IM Q4H PRN 12/02/18 [History] HYDROmorphone HCl/PF [Dilaudid 1 mg/ml Syringe] 1 mg IJ Q4H 12/03/18 [History] HYDROmorphone HCl/PF [Dilaudid 1 mg/ml Syringe] 2 mg IJ Q2H PRN 12/03/18 [ History] LORazepam [Ativan] 2 mg IJ Q4H PRN 12/03/18 [History] LORazepam [Ativan] 2 mg PO Q8H 12/03/18 [History] - Discharge Summary/Plan Comment DC Time >30 min.: No - Patient Data Med Orders - Current: Current Medications Acetaminophen (Tylenol) 650 mg PO Q3H PRN PRN Reason: Pain/Fever Atropine Sulfate (Atropine 1% Ophth Soln) 0 ml SL Q2H PRN PRN Reason: [place] Secretions Calamine/Phenol (Calmoseptine) 0 gm TOP Q2H PRN PRN Reason: Irritation Hydromorphone HCl (Dilaudid) 2 mg IVPUSH Q4H [facility] Last Admin: 12/04/18 17:12 Dose: Not Given Hydromorphone HCl (Dilaudid) 2 mg IVPUSH Q1H PRN PRN Reason: Pain Hydroxyzine HCl (Vistaril) 25 mg IM QID SE Lidocaine HCl (Xylocaine 2% Viscous) 5 ml PO Q4H PRN PRN Reason: Pain Lorazepam (Ativan) 2 mg IV Q4H PRN PRN Reason: Restlessness or Anxiety Lorazepam (Ativan) 2 mg IVPUSH QID SE Metoclopramide HCl (Reglan) 10 mg IVPUSH QIDACANDBED PRN PRN Reason: Nausea Olanzapine (Zyprexa) 10 mg IM Q4HR PRN PRN Reason: Agitation Ondansetron HCl (Zofran) 4 mg IVPUSH Q4H PRN PRN Reason: Nausea Discontinued Medications Calamine/Phenol (Calmoseptine) 1 gm TOP Q2H PRN PRN Reason: Irritation
[2018-12-04] MEDS ORDERED: LORazepam 2 MG/ML SDV IVPUSH SCH (20:00)
[2018-12-04] MEDS ORDERED: OLANZapine 10 MG Tab PO SCH (20:00)
== END 2018-12-04 16:26 | disposition critical access hospital (66) | DRG 951 ==
LOC: UNDOADMIN 13:30 → VM.MS 13:30
PROVIDERS: ADMIT Internal Medicine; ATTEND Family Medicine
DX: Z51.5 Encounter for palliative care (principal); C25.9 Malignant neoplasm of pancreas, unspecified; C78.7 Secondary malignant neoplasm of liver and intrahepatic bile duct; F05 Delirium due to known physiological condition; E86.0 Dehydration; R45.1 Restlessness and agitation; F43.20 Adjustment disorder, unspecified; I25.10 Atherosclerotic heart disease of native coronary artery without angina pectoris; I25.2 Old myocardial infarction; I10 Essential (primary) hypertension; N52.9 Male erectile dysfunction, unspecified; K21.9 Gastro-esophageal reflux disease without esophagitis; E78.5 Hyperlipidemia, unspecified; E03.9 Hypothyroidism, unspecified; G47.33 Obstructive sleep apnea (adult) (pediatric); M17.10 Unilateral primary osteoarthritis, unspecified knee; F43.10 Post-traumatic stress disorder, unspecified; Z79.899 Other long term (current) drug therapy; Z95.5 Presence of coronary angioplasty implant and graft; Z98.52 Vasectomy status; Z98.890 Other specified postprocedural states
CPT/HCPCS: J1170; J2060; J3410; J3490

== ENCOUNTER 2018-12-04 15:38 | Inpatient (IN) | payer MEDICARE, OTHER ==
[2018-12-04] MEDS ORDERED: Acetaminophen 325 MG Tab PO PRN (16:46)
[2018-12-04] MEDS ORDERED: Menthol/Zinc Oxide Ointment 3.5 GM Tube TOP PRN ×2 (16:46→17:08)
[2018-12-04] MEDS ORDERED: Metoclopramide 10 MG/2 ML SDV IVPUSH PRN (16:46)
[2018-12-04] MEDS ORDERED: Lidocaine 2% Viscous Solution 15 ML Cup PO PRN (16:46)
[2018-12-04] MEDS ORDERED: Ondansetron 4 MG/2 ML SDV IVPUSH PRN (16:46)
[2018-12-04] MEDS: HYDROmorphone 1 MG/ML Syringe IVPUSH SCH ×3 (17:12→20:21)
[2018-12-04] MEDS: LORazepam 2 MG/ML SDV IVPUSH SCH (19:31)
[2018-12-04] MEDS: hydrOXYzine HCl 50 MG/ML SDV IM SCH (19:31)
[2018-12-04] MEDS: HYDROmorphone 1 MG/ML Syringe IVPUSH PRN (22:05)
[2018-12-05] MEDS: HYDROmorphone 1 MG/ML Syringe IVPUSH PRN ×5 (01:26→21:44)
[2018-12-05] MEDS: HYDROmorphone 1 MG/ML Syringe IVPUSH SCH ×6 (01:32→20:05)
[2018-12-05] MEDS: LORazepam 2 MG/ML SDV IV PRN ×3 (04:29→18:13)
[2018-12-05] MEDS: hydrOXYzine HCl 50 MG/ML SDV IM SCH ×5 (07:15→20:08)
[2018-12-05] MEDS: LORazepam 2 MG/ML SDV IVPUSH SCH ×4 (07:16→20:07)
[2018-12-05] MEDS: OLANZapine 10 MG Vial IM PRN (08:00)
[2018-12-05] MEDS: Atropine 1% Ophth Soln 5 ML BOTTLE SL PRN ×4 (14:10→21:45)
--- NOTE | 2018-12-05 15:43 | PCM.HP ---
H&P History of Present Illness - General Date of Service: 12/05/18 Admit Problem/Dx: Admission Diagnosis/Problem Admission Diagnosis/Problem Pancreatic neoplasm Source of Information: Family History Limitations: Reports: No Limitations - History of Present Illness Initial Comments - Free Text/Narative: Mr. Shah is a 68 yo male admitted to inpatient status after his hospice was revoked at midnight. He was initially admitted swing bed on 12/02, was transitioned to general inpatient hospice on 12/03 due to the amount of medications he was requiring, and is now on regular inpatient after revocation of his hospice. His main symptom prior to and since admission has been agitation. He is generally weak but has wanted to be getting up out of bed doing things in his room. He had pain prior to admission but this has been well controlled on the dilaudid. He has at times seemed anxious as well. Family has been at his bedside. His current medication regimen seems to be working well for him for symptom relief. Please see previous visit notes for further details. - Related Data Allergies/Adverse Reactions: Allergies Allergy/AdvReac Type Severity Reaction Status Date / Time No Known Drug Allergies Allergy Other Verified 11/13/18 01:18 Home Medications: Home Meds Hyoscyamine [Hyosyne] 0.125 mg PO Q4H PRN 12/02/18 [History] LORazepam 1.5 mg PO TID 12/02/18 [History] Morphine [Morphine 20 MG/ML Soln] 20 mg PO Q4H PRN 12/02/18 [History] OLANZapine [Olanzapine] 10 mg IM Q4H PRN 12/02/18 [History] HYDROmorphone HCl/PF [Dilaudid 1 mg/ml Syringe] 1 mg IJ Q4H 12/03/18 [History] HYDROmorphone HCl/PF [Dilaudid 1 mg/ml Syringe] 2 mg IJ Q2H PRN 12/03/18 [ History] LORazepam [Ativan] 2 mg IJ Q4H PRN 12/03/18 [History] LORazepam [Ativan] 2 mg PO Q8H 12/03/18 [History] Past Medical History Cardiovascular History: Reports: High Cholesterol, Hypertension Gastrointestinal History: Reports: GERD Endocrine/Metabolic History: Reports: Diabetes, Type II Oncologic (Cancer) History: Reports: Pancreatic Other Oncologic History: chemotherapy, last dose SaturdayDecember 31. - Past Surgical History HEENT Surgical History: Reports: Tonsillectomy Other Musculoskeletal Surgeries/Procedures:: Right foot surgery Social & Family History - Family History Family Medical History: Noncontributory - Tobacco Use Smoking Status *Q: Never Smoker - Living Situation & Occupation Living situation: Reports: , with Significant Other Occupation: Retired H&P Review of Systems - Review of Systems: Review Of Systems: Unable To Obtain Exam - Exam Exam: See Below - Exam General: Other (sleeping calmly in bed in no acute distress) HEENT: Mucosa Moist & [place] Lungs: Clear to Auscultation, Normal Respiratory Effort Cardiovascular: Regular Rate, Regular Rhythm GI/Abdominal Exam: Normal Bowel Sounds, Soft, Non-Tender, No Distention Extremities: No Pedal Edema Skin: Warm, Dry, Intact - Problem List (1) Need for comfort care SNOMED Code(s): 853775196, [id number] ICD Code: [id number] - Status: Acute Current Visit: No (2) Palliative care patient SNOMED Code(s): 632936828 ICD Code: Z51.5 - ENCOUNTER FOR PALLIATIVE CARE Status: Acute Current Visit: No (3) Pancreatic cancer SNOMED Code(s): 681795161 ICD Code: C25.9 - MALIGNANT NEOPLASM OF PANCREAS, UNSPECIFIED Status: Chronic Current Visit: No Qualifiers: Pancreatic malignancy location: unspecified Qualified Code(s): C25.9 - Malignant neoplasm of pancreas, unspecified Problem List Initiated/Reviewed/Updated: Yes Orders Last 24hrs: Active Orders 24 hr Category Date Time Status Patient Status [ADT] Routine ADT 12/04/18 15:54 Active Oxygen Therapy [RC] .PRN Care 12/04/18 16:46 Active Turn and Reposition [RC] Q2H Care 12/04/18 16:46 Active Acetaminophen [Tylenol] Med 12/04/18 16:46 Active 650 mg PO Q3H PRN Atropine 1% [Atropine 1% Ophth Soln] Med 12/04/18 16:46 Active See Dose Instructions SL Q2H PRN HYDROmorphone [Dilaudid] Med 12/04/18 16:53 Active 2 mg IVPUSH Q1H PRN HYDROmorphone [Dilaudid] Med 12/04/18 17:00 Active 2 mg IVPUSH Q4H LORazepam [Ativan] Med 12/04/18 16:46 Active 2 mg IV Q4H PRN LORazepam [Ativan] Med 12/04/18 20:00 Active 2 mg IVPUSH QID Lidocaine 2% [Xylocaine 2% Viscous] Med 12/04/18 16:46 Active 5 ml PO Q4H PRN Menthol/Zinc Oxide [Calmoseptine] Med 12/04/18 17:08 Active 0 gm TOP Q2H PRN Metoclopramide [Reglan] Med 12/04/18 16:46 Active 10 mg IVPUSH QIDACANDBED PRN OLANZapine [ZyPREXA] Med 12/04/18 16:50 Active 10 mg IM Q4HR PRN Ondansetron [Zofran] Med 12/04/18 16:46 Active 4 mg IVPUSH Q4H PRN hydrOXYzine HCl [Vistaril] Med 12/04/18 20:00 Active 25 mg IM QID Resuscitation Status Routine Resus Stat 12/04/18 16:46 Ordered Medication Orders Acetaminophen (Tylenol) 650 mg PO Q3H PRN PRN Reason: Pain/Fever Atropine Sulfate (Atropine 1% Oph Soln) 0 ml SL Q2H PRN PRN Reason: [employer] Last Admin: 12/05/18 14:10 Dose: 1 ml Calamine/Phenol (Calmoseptine) 0 gm TOP Q2H PRN PRN Reason: Irritation Hydromorphone HCl (Dilaudid) 2 mg IVPUSH Q4H [facility]PLAC[facility] Last Admin: 12/05/18 11:14 Dose: 2 mg Admin: 12/05/18 04:29 Dose: 2 mg Admin: 12/05/18 01:32 Dose: Admin: 12/04/18 20:21 Dose: Admin: 12/04/18 19:31 Dose: 2 mg Admin: 12/04/18 17:12 Dose: Hydromorphone HCl (Dilaudid) 2 mg IVPUSH Q1H PRN PRN Reason: Pain Last Admin: 12/05/18 14:01 Dose: 2 mg Admin: 12/05/18 08:00 Dose: 2 mg Admin: 12/05/18 01:26 Dose: 2 mg Admin: 12/04/18 22:05 Dose: 2 mg Hydroxyzine HCl (Vistaril) 25 mg IM QID REPLACED BY [facility] Last Admin: 12/05/18 14:02 Dose: 25 mg Admin: 12/05/18 11:15 Dose: 25 mg Admin: 12/05/18 07:15 Dose: 25 mg Admin: 12/04/18 19:31 Dose: 25 mg Lidocaine HCl (Xylocaine 2% Viscous) 5 ml PO Q4H PRN PRN Reason: Pain Lorazepam (Ativan) 2 mg IV Q4H PRN PRN Reason: Restlessness or Anxiety Last Admin: 12/05/18 14:02 Dose: 2 mg Admin: 12/05/18 04:29 Dose: 2 mg Lorazepam (Ativan) 2 mg IVPUSH QID REPLACED BY [facility] Last Admin: 12/05/18 11:15 Dose: 2 mg Admin: 12/05/18 07:16 Dose: 2 mg Admin: 12/04/18 19:31 Dose: 2 mg Metoclopramide HCl (Reglan) 10 mg IVPUSH QIDACANDBED PRN PRN Reason: Nausea Olanzapine (Zyprexa) 10 mg IM Q4HR PRN PRN Reason: Agitation Last Admin: 12/05/18 08:00 Dose: 10 mg Ondansetron HCl (Zofran) 4 mg IVPUSH Q4H PRN PRN Reason: Nausea Assessment/Plan Comment:: 68 yo male with advanced pancreatic cancer admitted for end of life cares. Symptoms are overall well controlled on his current medication regimen. Therefore, no changes to his management today. He will remain on inpatient for now - if his medication regimen remains stable, we could consider transition back to swing bed in the next 2-3 days. He is DNR/DNI/comfort measures only. There is no indication for VTE prophylaxis in the setting of end of life cares.
[2018-12-05] MEDS: Haloperidol Lactate 5 MG/ML SDV IV PRN ×2 (18:13→21:52)
[2018-12-06] MEDS: HYDROmorphone 1 MG/ML Syringe IVPUSH SCH ×6 (00:30→20:00)
[2018-12-06] MEDS: Atropine 1% Ophth Soln 5 ML BOTTLE SL PRN (00:32)
[2018-12-06] MEDS: HYDROmorphone 1 MG/ML Syringe IVPUSH PRN ×3 (03:55→11:49)
[2018-12-06] MEDS: LORazepam 2 MG/ML SDV IV PRN ×2 (03:55→11:48)
[2018-12-06] MEDS: Haloperidol Lactate 5 MG/ML SDV IV PRN (04:10)
[2018-12-06] MEDS: hydrOXYzine HCl 50 MG/ML SDV IM SCH ×4 (07:26→20:04)
[2018-12-06] MEDS: LORazepam 2 MG/ML SDV IVPUSH SCH ×4 (07:28→19:57)
--- NOTE | 2018-12-06 10:43 | PCM.PN ---
- General Info Date of Service: 12/06/18 Subjective Update: 68 yo male hospital day #2 admitted for symptom management related to end of life cares. Family present at bedside. They note the patient has been much more calm over the past 24 hours. He has not tried to get out of bed. He has tried to lift his head up a couple of times but nothing further than that. He has not seemed to be in pain. They deny any other concerns at this time. - Review of Systems Systems Review Comment:: Unable to assess due to patient's mental status. - Patient Data Med Orders - Current: Current Medications Acetaminophen (Tylenol) 650 mg PO Q3H PRN PRN Reason: Pain/Fever Atropine Sulfate (Atropine 1% Ophth Soln) 0 ml SL Q2H PRN PRN Reason: [employer]ions Last Admin: 12/06/18 00:32 Dose: 1 ml Calamine/Phenol (Calmoseptine) 0 gm TOP Q2H PRN PRN Reason: Irritation Haloperidol Lactate (Haldol) 5 mg IV Q4H PRN PRN Reason: Agitation Last Admin: 12/06/18 04:10 Dose: 5 mg Hydromorphone HCl (Dilaudid) 2 mg IVPUSH Q4H [facility] Last Admin: 12/06/18 05:22 Dose: 2 mg Hydromorphone HCl (Dilaudid) 2 mg IVPUSH Q1H PRN PRN Reason: Pain Last Admin: 12/06/18 07:28 Dose: 2 mg Hydroxyzine HCl (Vistaril) 25 mg IM QID [facility] Last Admin: 12/06/18 07:26 Dose: 25 mg Lidocaine HCl (Xylocaine 2% Viscous) 5 ml PO Q4H PRN PRN Reason: Pain Lorazepam (Ativan) 2 mg IV Q4H PRN PRN Reason: Restlessness or Anxiety Last Admin: 12/06/18 03:55 Dose: 2 mg Lorazepam (Ativan) 2 mg IVPUSH QID [facility] Last Admin: 12/06/18 07:28 Dose: 2 mg Metoclopramide HCl (Reglan) 10 mg IVPUSH QIDACANDBED PRN PRN Reason: Nausea Olanzapine (Zyprexa) 10 mg IM Q4HR PRN PRN Reason: Agitation Last Admin: 12/05/18 08:00 Dose: 10 mg Ondansetron HCl (Zofran) 4 mg IVPUSH Q4H PRN PRN Reason: Nausea Sodium Chloride (Saline Flush) 20 ml IV ASDIRECTED PRN PRN Reason: Keep Vein Open Discontinued Medications Calamine/Phenol (Calmoseptine) 1 gm TOP Q2H PRN PRN Reason: Irritation - Exam General: No Acute Distress HEENT: Mucous Membr. Moist/[place] Lungs: Clear to Auscultation, Normal Respiratory Effort Cardiovascular: Regular Rate, Regular Rhythm, No Murmurs GI/Abdominal Exam: Normal Bowel Sounds, Soft, No Distention Extremities: No Pedal Edema Peripheral Pulses: 2+: Radial (L), Radial (R) Skin: Warm, Dry - Problem List & Annotations (1) Need for comfort care SNOMED Code(s): 074701104, 438284199 Code(s): DSI0618 - Status: Acute Current Visit: No (2) Palliative care patient SNOMED Code(s): 293602959 Code(s): Z51.5 - ENCOUNTER FOR PALLIATIVE CARE Status: Acute Current Visit: No (3) Pancreatic cancer SNOMED Code(s): 394512742 Code(s): C25.9 - MALIGNANT NEOPLASM OF PANCREAS, UNSPECIFIED Status: Chronic Current Visit: No Qualifiers: Pancreatic malignancy location: unspecified Qualified Code(s): C25.9 - Malignant neoplasm of pancreas, unspecified - Problem List Review Problem List Initiated/Reviewed/Updated: Yes - My Orders Last 24 Hours: My Active Orders 12/06/18 05:20 Sodium Chloride 0.9% [Saline Flush] 20 ml IV ASDIRECTED PRN - Assessment Assessment:: 68 yo male who is admitted for end of life cares in the setting of advanced pancreatic cancer. - Plan Plan:: Symptoms remain well controlled on his current medication regimen. Haloperidol PRN was added yesterday as we only have 2 more doses of the zyprexa but he has not required any of this. No changes to his management or medical regimen today. He will remain on inpatient at this time due to the frequency of IV medication needs - anticipate he will pass in the next 1-2 days but will consider transition back to swing bed next week depending on his clinical course. He is DNR/DNI/comfort measures only. There is no indication for VTE prophylaxis in the setting of end of life cares.
[2018-12-06] MEDS: Sodium Chloride 0.9% 10 ML Syringe IV PRN (11:49)
[2018-12-06] MEDS: OLANZapine 10 MG Vial IM PRN (11:49)
[2018-12-07] MEDS: HYDROmorphone 1 MG/ML Syringe IVPUSH SCH ×7 (00:13→20:36)
[2018-12-07] MEDS: Sodium Chloride 0.9% 10 ML Syringe IV PRN ×5 (00:15→15:24)
[2018-12-07] MEDS: LORazepam 2 MG/ML SDV IVPUSH SCH ×4 (07:34→20:35)
[2018-12-07] MEDS: hydrOXYzine HCl 50 MG/ML SDV IM SCH ×4 (07:38→21:11)
--- NOTE | 2018-12-07 09:19 | PCM.PN ---
- General Info Date of Service: 12/07/18 Subjective Update: Patient's family at bedside and deny any concerns. Patient has seemed comfortable and has not been in pain or agitated. Nursing did ask if they wanted the rectal tylenol for the high temps but the family declined as they felt he still looks comfortable. - Review of Systems Systems Review Comment:: Unable to assess. - Patient Data Med Orders - Current: Current Medications Acetaminophen (Tylenol) 650 mg PO Q3H PRN PRN Reason: Pain/Fever Atropine Sulfate (Atropine 1% Ophth Soln) 0 ml SL Q2H PRN PRN Reason: [employer] Last Admin: 12/06/18 00:32 Dose: 1 ml Calamine/Phenol (Calmoseptine) 0 gm TOP Q2H PRN PRN Reason: Irritation Haloperidol Lactate (Haldol) 5 mg IV Q4H PRN PRN Reason: Agitation Last Admin: 12/06/18 04:10 Dose: 5 mg Hydromorphone HCl (Dilaudid) 2 mg IVPUSH Q4H [facility] Last Admin: 12/07/18 08:54 Dose: Not Given Hydromorphone HCl (Dilaudid) 2 mg IVPUSH Q1H PRN PRN Reason: Pain Last Admin: 12/06/18 11:49 Dose: 2 mg Hydroxyzine HCl (Vistaril) 25 mg IM QID [facility] Last Admin: 12/07/18 07:38 Dose: Not Given Lidocaine HCl (Xylocaine 2% Viscous) 5 ml PO Q4H PRN PRN Reason: Pain Lorazepam (Ativan) 2 mg IV Q4H PRN PRN Reason: Restlessness or Anxiety Last Admin: 12/06/18 11:48 Dose: 2 mg Lorazepam (Ativan) 2 mg IVPUSH QID [facility] Last Admin: 12/07/18 07:34 Dose: 2 mg Metoclopramide HCl (Reglan) 10 mg IVPUSH QIDACANDBED PRN PRN Reason: Nausea Olanzapine (Zyprexa) 10 mg IM Q4HR PRN PRN Reason: Agitation Last Admin: 12/06/18 11:49 Dose: 10 mg Ondansetron HCl (Zofran) 4 mg IVPUSH Q4H PRN PRN Reason: Nausea Sodium Chloride (Saline Flush) 20 ml IV ASDIRECTED PRN PRN Reason: Keep Vein Open Last Admin: 12/07/18 07:35 Dose: 20 ml Discontinued Medications Calamine/Phenol (Calmoseptine) 1 gm TOP Q2H PRN PRN Reason: Irritation - Exam General: No Acute Distress - Problem List & Annotations (1) Need for comfort care SNOMED Code(s): 215550091, 787864090 Code(s): OSI6139 - Status: Acute Current Visit: No (2) Palliative care patient SNOMED Code(s): 492343865 Code(s): Z51.5 - ENCOUNTER FOR PALLIATIVE CARE Status: Acute Current Visit: No (3) Pancreatic cancer SNOMED Code(s): 327196411 Code(s): C25.9 - MALIGNANT NEOPLASM OF PANCREAS, UNSPECIFIED Status: Chronic Current Visit: No Qualifiers: Pancreatic malignancy location: unspecified Qualified Code(s): C25.9 - Malignant neoplasm of pancreas, unspecified - Problem List Review Problem List Initiated/Reviewed/Updated: Yes - Assessment Assessment:: 68 yo male who is admitted for end of life cares in the setting of advanced pancreatic cancer. - Plan Plan:: Symptoms remain well controlled. No changes to his medications today. He will remain on inpatient at this time due to the frequency of IV medication needs - anticipate he will pass in the next 24 hours but will consider transition back to swing bed next week depending on his clinical course. He is DNR/DNI/comfort measures only. There is no indication for VTE prophylaxis in the setting of end of life cares.
[2018-12-07] MEDS: HYDROmorphone 1 MG/ML Syringe IVPUSH PRN (15:24)
[2018-12-07] MEDS: LORazepam 2 MG/ML SDV IV PRN (18:24)
[2018-12-07] MEDS: Haloperidol Lactate 5 MG/ML SDV IV PRN (20:36)
[2018-12-08] MEDS: HYDROmorphone 1 MG/ML Syringe IVPUSH SCH ×2 (00:47→04:55)
[2018-12-08] MEDS: Sodium Chloride 0.9% 10 ML Syringe IV PRN ×2 (00:48→04:59)
--- NOTE | 2018-12-08 08:15 | PCM.DCSUM1 ---
Discharge Summary - Hospital Course Brief History: Mr. Shah is a 68 yo male with advanced pancreatic cancer who was admitted for end of life cares. - Discharge Data Discharge Date: 12/08/18 Discharge Disposition: 20 Condition: Poor - Discharge Diagnosis/Problem(s) (1) Need for comfort care SNOMED Code(s): 290780179, 657656463 ICD Code: [id number] - Status: Acute Current Visit: No (2) Palliative care patient SNOMED Code(s): 068027810 ICD Code: Z51.5 - ENCOUNTER FOR PALLIATIVE CARE Status: Acute Current Visit: No (3) Pancreatic cancer SNOMED Code(s): 888753658 ICD Code: C25.9 - MALIGNANT NEOPLASM OF PANCREAS, UNSPECIFIED Status: Chronic Current Visit: No Qualifiers: Pancreatic malignancy location: unspecified Qualified Code(s): C25.9 - Malignant neoplasm of pancreas, unspecified - Patient Summary/Data Hospital Course: The patient was admitted and given IV medications for comfort through his existing port. Family was consistently at bedside. Although he initially had episodes of agitation that had to be controlled with zyrexa, he was eventually more comfortable and symptoms were controlled with dilaudid and ativan. He comfortably with family at his side on 12/08. - Discharge Plan Home Medications: Home Meds Hyoscyamine [Hyosyne] 0.125 mg PO Q4H PRN 12/02/18 [History] LORazepam 1.5 mg PO TID 12/02/18 [History] Morphine [Morphine 20 MG/ML Soln] 20 mg PO Q4H PRN 12/02/18 [History] OLANZapine [Olanzapine] 10 mg IM Q4H PRN 12/02/18 [History] HYDROmorphone HCl/PF [Dilaudid 1 mg/ml Syringe] 1 mg IJ Q4H 12/03/18 [History] HYDROmorphone HCl/PF [Dilaudid 1 mg/ml Syringe] 2 mg IJ Q2H PRN 12/03/18 [ History] LORazepam [Ativan] 2 mg IJ Q4H PRN 12/03/18 [History] LORazepam [Ativan] 2 mg PO Q8H 12/03/18 [History] - Discharge Summary/Plan Comment DC Time >30 min.: No - Patient Data Vitals - Most Recent: Last Vital Signs Temp 41.1 C H 12/08/18 05:00 Pulse Resp BP Pulse Ox Med Orders - Current: Current Medications Acetaminophen (Tylenol) 650 mg PO Q3H PRN PRN Reason: Pain/Fever Atropine Sulfate (Atropine 1% Ophth Soln) 0 ml SL Q2H PRN PRN Reason: [employer] Last Admin: 12/06/18 00:32 Dose: 1 ml Calamine/Phenol (Calmoseptine) 0 gm TOP Q2H PRN PRN Reason: Irritation Haloperidol Lactate (Haldol) 5 mg IV Q4H PRN PRN Reason: Agitation Last Admin: 12/07/18 20:36 Dose: 5 mg Hydromorphone HCl (Dilaudid) 2 mg IVPUSH Q4H [facility] Last Admin: 12/08/18 04:55 Dose: 2 mg Hydromorphone HCl (Dilaudid) 2 mg IVPUSH Q1H PRN PRN Reason: Pain Last Admin: 12/07/18 15:24 Dose: 2 mg Hydroxyzine HCl (Vistaril) 25 mg IM QID [facility] Last Admin: 12/07/18 21:11 Dose: Not Given Lidocaine HCl (Xylocaine 2% Viscous) 5 ml PO Q4H PRN PRN Reason: Pain Lorazepam (Ativan) 2 mg IV Q4H PRN PRN Reason: Restlessness or Anxiety Last Admin: 12/07/18 18:24 Dose: 2 mg Lorazepam (Ativan) 2 mg IVPUSH QID [facility] Last Admin: 12/07/18 20:35 Dose: 2 mg Metoclopramide HCl (Reglan) 10 mg IVPUSH QIDACANDBED PRN PRN Reason: Nausea Olanzapine (Zyprexa) 10 mg IM Q4HR PRN PRN Reason: Agitation Last Admin: 12/06/18 11:49 Dose: 10 mg Ondansetron HCl (Zofran) 4 mg IVPUSH Q4H PRN PRN Reason: Nausea Sodium Chloride (Saline Flush) 20 ml IV ASDIRECTED PRN PRN Reason: Keep Vein Open Last Admin: 12/08/18 04:59 Dose: 20 ml Discontinued Medications Calamine/Phenol (Calmoseptine) 1 gm TOP Q2H PRN PRN Reason: Irritation
== END 2018-12-08 08:00 | disposition expired | DRG 951 ==
LOC: VM.MS 16:26
PROVIDERS: ADMIT Family Medicine; ATTEND Family Medicine
DX: Z51.5 Encounter for palliative care (principal); C25.9 Malignant neoplasm of pancreas, unspecified; Z66 Do not resuscitate; R45.1 Restlessness and agitation; R53.1 Weakness; F41.9 Anxiety disorder, unspecified; E78.00 Pure hypercholesterolemia, unspecified; I10 Essential (primary) hypertension; K21.9 Gastro-esophageal reflux disease without esophagitis; E11.9 Type 2 diabetes mellitus without complications; Z79.899 Other long term (current) drug therapy
CPT/HCPCS: A9270-GY; J1170; J1630; J2060; J3410; J3490